=== PATIENT | male | born 2000 | race Caucasian/White ===

== ENCOUNTER 2020-01-19 16:41 | Emergency (ER) | payer BC ==
--- NOTE | 2020-01-19 17:01 | TELE ---
HPI Do you have fever,cough or shortness of breath?: No - General Reason For Visit: COVID History Source: Patient Review of Systems - Review of Systems Constitutional: No: Fever Respiratory: No: Cough *Physical Exam - Physical Exam Respiratory/Chest: negative: Respiratory Distress Discharge Diagnosis at time of Disposition: Encounter for screening laboratory testing for COVID-19 virus - Referrals - Patient Instructions - Discharge Disposition: HOME Condition at time of Disposition: Stable
== END 2020-01-19 17:01 | disposition home or self-care (01) ==
LOC: JVIRT 16:41
DX: Z03.818 Encounter for observation for suspected exposure to other biological agents ruled out (principal)
CPT/HCPCS: C9803; Q3014-GT; U0003